=== PATIENT | male | born 1935 | race Caucasian/White ===

== ENCOUNTER 2019-07-21 11:32 | Observation (INO) ==
[2019-07-21] MEDS ORDERED: methylPREDNISolone 125 MG/2 ML VIAL IVP ONE (12:16)
[2019-07-21] MEDS ORDERED: Ipratropium/Albuterol Neb 3 ML IH ONE (12:16)
[2019-07-21 12:33] LABS: Basophils % 0.4 %; Eosinophils # 0.1 K/mcL (0.0-0.6); Eosinophils % 1.7 %; Hematocrit 41.3 % (37.5-50.1); Hemoglobin 13.6 g/dL (12.9-16.9); Immature Granulocytes % 1.2 % (0-4); Lymphocytes # 0.8 K/mcL (0.6-4.6); Lymphocytes % 10.1 %; Mean Corpuscular HGB Conc 32.9 g/dL (31.6-35.5); Mean Corpuscular Hemoglobin 33.3 pg (28.0-33.3); Mean Platelet Volume 10.3 fL (9.4-12.4); Monocytes # 0.9 K/mcL (0.0-1.3); Monocytes % 12.2 %; Neutrophils # 5.5 K/mcL (1.6-8.9); Platelet Count 173 K/mcL (140-400); Red Blood Count 4.09 M/mcL (4.19-5.50); Red Cell Distribution Width 12.9 % (11.5-14.5); Segmented Neutrophils % 74.4 %; White Blood Count 7.4 K/mcL (4.3-11.1)
[2019-07-21 13:18] LABS: Bilirubin,Urine Moderate (Negative); Blood,Urine Negative (Negative); Color,Urine Dark Yellow (Yellow); Glucose,Urine (UA) Normal (Normal); Ketones,Urine Negative (Negative); Leukocyte Esterase,Urine Negative (Negative); Nitrite,Urine Negative (Negative); PH,Urine 5.5 pH Units (5.0-8.0); Protein,Urine Trace mg/dL (Neg-Trace); Specific Gravity,Urine 1.025 (1.010-1.025)
[2019-07-21 13:20] LABS: BUN/Creatinine Ratio 13 (6-26); Blood Urea Nitrogen 20 mg/dL (8-23); Calcium 9.3 mg/dL (8.6-10.3); Carbon Dioxide 31 mEq/L (23-29); Chloride 98 mEq/L (98-107); Glucose 122 mg/dL (70-105); Osmolality,Calculated 294 (280-300); Potassium 4.2 mEq/L (3.5-5.1); Sodium 140 mEq/L (136-145); Troponin I < 0.03 ng/mL (< 0.04); eGFR For African Americans 53 (> 60); eGFR For Non-African Americans 44 (> 60)
[2019-07-21 13:21] LABS: Bacteria,Urine None Seen per hpf (None-Few); Hyaline Casts,Urine Few per lpf (None-Few); RBC,Urine 15-30 per hpf (0-3); Squamous Epithelial Cell,Urine Many per lpf (None-Few)
[2019-07-21 13:22] LABS: Clarity,Urine Slightly Cloudy (Clear)
[2019-07-21] MEDS ORDERED: Albuterol 2.5 MG/3 ML NEBULIZER IH STA (13:51)
[2019-07-21] MEDS ORDERED: Azithromycin 500 MG in 0.9 % Sodium Chloride 250 ML IVPB ONE (14:30)
[2019-07-21] MEDS ORDERED: cefTRIAXone 2,000 MG in Water for inj. (sterile) 20 ML IVP ONE (14:31)
[2019-07-21] MEDS ORDERED: Naloxone 0.4 MG/ML INJ IVP PRN (17:12)
[2019-07-21] MEDS ORDERED: Furosemide 40 MG/4 ML VIAL IVP SCH (17:13)
[2019-07-21] MEDS ORDERED: *HR* HYDROcodone/Acet 7.5/325 mg TABLET PO PRN (17:15)
[2019-07-21] MEDS: Budesonide/Formoterol 160/4.5 1 PUFF INH IH SCH (20:19)
[2019-07-21] MEDS: Ipratropium/Albuterol Neb 3 ML IH SCH (20:29)
[2019-07-21] MEDS: Mirtazapine 15 MG TABLET PO SCH (21:35)
[2019-07-21] MEDS: Apixaban 2.5 MG TABLET PO SCH (21:36)
[2019-07-21] MEDS: Furosemide 40 MG/4 ML VIAL IVP SCH (21:40)
[2019-07-22] MEDS: Ipratropium/Albuterol Neb 3 ML IH SCH ×7 (00:04→23:09)
[2019-07-22 05:48] LABS: Basophils % 0.5 %; Hematocrit 40.9 % (37.5-50.1); Hemoglobin 13.3 g/dL (12.9-16.9); Immature Granulocytes % 4.3 % (0-4); Lymphocytes # 0.3 K/mcL (0.6-4.6); Lymphocytes % 8.1 %; Mean Corpuscular HGB Conc 32.5 g/dL (31.6-35.5); Mean Corpuscular Hemoglobin 32.8 pg (28.0-33.3); Mean Corpuscular Volume 100.7 fL (83.0-100.0); Mean Platelet Volume 10.2 fL (9.4-12.4); Monocytes # 0.1 K/mcL (0.0-1.3); Monocytes % 3.1 %; Neutrophils # 3.5 K/mcL (1.6-8.9); Platelet Count 170 K/mcL (140-400); Red Blood Count 4.06 M/mcL (4.19-5.50); Red Cell Distribution Width 12.7 % (11.5-14.5); White Blood Count 4.2 K/mcL (4.3-11.1)
[2019-07-22 06:07] LABS: BUN/Creatinine Ratio 17 (6-26); Blood Urea Nitrogen 22 mg/dL (8-23); Carbon Dioxide 34 mEq/L (23-29); Chloride 97 mEq/L (98-107); Glucose 160 mg/dL (70-105); Osmolality,Calculated 299 (280-300); Phosphorous 3.8 mg/dL (2.7-4.5); Potassium 4.3 mEq/L (3.5-5.1); Sodium 141 mEq/L (136-145); eGFR For African Americans > 60 (> 60); eGFR For Non-African Americans 52 (> 60)
[2019-07-22] MEDS: Budesonide/Formoterol 160/4.5 1 PUFF INH IH SCH ×2 (07:23→20:02)
[2019-07-22] MEDS: *HR* Amiodarone 200 MG TABLET PO SCH (07:48)
[2019-07-22] MEDS: Apixaban 2.5 MG TABLET PO SCH ×2 (07:48→20:41)
[2019-07-22] MEDS: Furosemide 40 MG/4 ML VIAL IVP SCH ×3 (07:48→17:18)
[2019-07-22] MEDS: predniSONE 20 MG TABLET PO SCH (07:48)
[2019-07-22] MEDS: Diltiazem CD (24hr) 240 MG CAPSULE PO SCH (07:48)
[2019-07-22] MEDS: Azithromycin 250 MG TABLET PO SCH (08:01)
[2019-07-22] MEDS ORDERED: cefTRIAXone 1,000 MG in Water for inj. (sterile) 10 ML IVP SCH ×2 (09:00→16:00)
[2019-07-22] MEDS ORDERED: Azithromycin 500 MG in 0.9 % Sodium Chloride 250 ML IVPB SCH (16:00)
[2019-07-22] MEDS: Artificial Tears SOLN 15 ML BOTTLE BOTH EYES SCH ×2 (17:18→20:48)
[2019-07-22] MEDS: Mirtazapine 15 MG TABLET PO SCH (20:41)
[2019-07-23] MEDS: Ipratropium/Albuterol Neb 3 ML IH SCH ×3 (03:54→11:04)
[2019-07-23] MEDS: Budesonide/Formoterol 160/4.5 1 PUFF INH IH SCH (07:20)
[2019-07-23 07:51] LABS: Basophils % 0.1 %; Eosinophils % 0.1 %; Hematocrit 39.1 % (37.5-50.1); Immature Granulocytes % 1.4 % (0-4); Lymphocytes # 0.7 K/mcL (0.6-4.6); Lymphocytes % 9.3 %; Mean Corpuscular HGB Conc 30.7 g/dL (31.6-35.5); Mean Corpuscular Hemoglobin 32.5 pg (28.0-33.3); Mean Platelet Volume 10.3 fL (9.4-12.4); Monocytes # 0.8 K/mcL (0.0-1.3); Monocytes % 10.3 %; Neutrophils # 6.2 K/mcL (1.6-8.9); Platelet Count 174 K/mcL (140-400); Red Blood Count 3.69 M/mcL (4.19-5.50); Red Cell Distribution Width 12.8 % (11.5-14.5); Segmented Neutrophils % 78.8 %
[2019-07-23 07:56] LABS: White Blood Count 7.9 K/mcL (4.3-11.1)
[2019-07-23] MEDS: Artificial Tears SOLN 15 ML BOTTLE BOTH EYES SCH (08:05)
[2019-07-23] MEDS: Furosemide 40 MG/4 ML VIAL IVP SCH (08:06)
[2019-07-23] MEDS: Diltiazem CD (24hr) 240 MG CAPSULE PO SCH (08:07)
[2019-07-23] MEDS: Azithromycin 250 MG TABLET PO SCH (08:07)
[2019-07-23] MEDS: predniSONE 20 MG TABLET PO SCH (08:09)
[2019-07-23] MEDS: *HR* Amiodarone 200 MG TABLET PO SCH (08:10)
[2019-07-23] MEDS: Apixaban 2.5 MG TABLET PO SCH (08:11)
[2019-07-23] MEDS ORDERED: cefTRIAXone 1,000 MG in 0.9 % Sodium Chloride Mini Bag 100 ML IVPB SCH (09:00)
[2019-07-23 10:35] LABS: Magnesium 1.9 mg/dL (1.6-2.6); Phosphorous 2.9 mg/dL (2.7-4.5); Potassium 3.7 mEq/L (3.5-5.1)
[2019-07-23 10:49] VITALS: BP 145/79
== END 2019-07-23 12:44 | disposition home or self-care (01) ==
LOC: EMEROOARM 11:32 → 2ANU 11:32
PROVIDERS: ADMIT Student in an Organized Health Care Education/Training Program; ATTEND Student in an Organized Health Care Education/Training Program